=== PATIENT | male | born 1970 | race Caucasian/White ===

== ENCOUNTER 2021-08-28 15:13 | Inpatient (IN) ==
--- NOTE | 2021-08-28 15:48 | XRay Report ---
KUB HISTORY: Follow-up right ureteral stone. right kidney stone COMPARISON: Abdomen and pelvis CT 08/23/2021. FINDINGS: The bowel gas pattern is unremarkable. There are no dilated loops of small bowel to suggest an obstruction. No change in the 4 mm distal right ureteral stone. Additional calcifications within the right deep pelvis are consistent with phleboliths. The renal shadows are mostly obscured by over lying bowel gas. No definite renal calculi identified. Moderate to large amount well-formed stool wit hin the proximal colon. No pneumoperitoneum or pneumatosis. IMPRESSION: No change in position of the 4 mm distal right ureteral stone. ACT 112: Negative or not required by law. Electronically signed by: Keanu Willis M.D. 08/28/2021 3:47 PM
[2021-08-28] MEDS ORDERED: SODIUM CHLORIDE 0.9% 500 ML IV STA (17:24)
[2021-08-28] MEDS ORDERED: KETOROLAC TROMETHAMINE 15 MG/ML VIAL IV STA (17:24)
[2021-08-28 17:37] LABS: Hemoglobin 14.7 g/dL (14.0-18.0); Mean Corpuscular Hemoglobin 31.3 pg (25-34); Mean Corpuscular Hgb Conc 34.2 g/dL (32-36); Mean Corpuscular Volume 91.7 fL (80-100); Mean Platelet Volume 8.8 fL (7.4-10.4); Platelet Count 302 K/uL (130-400); RDW Coefficient of Variation 11.5 % (11.5-14.5); RDW Standard Deviation 38.7 fL (36.4-46.3); Red Blood Count 4.69 M/uL (4.7-6.1)
[2021-08-28 17:57] LABS: BUN Creatinine Ratio 9.5 (10-20); Calcium 8.9 mg/dl (8.5-10.1); Creatinine Clr Calc Pharmacy 42.2 ml/min; Est GFR (African American) 32.7 ml/min; Est GFR (Non-African American) 28.3 ml/min; Potassium 3.5 mmol/L (3.5-5.1)
[2021-08-28 18:18] LABS: Appearance Urine Turbid (Clear); Bacteria Urine Automated Negative (Negative); Bilirubin Urine Negative (Negative); Blood Urine Negative (Negative); Cast Urine Automated 0 /lpf (0-5); Color Urine Yellow; Epithelial Cell Urine Auto 0-5 /lpf (0-5); Glucose Urine UA Negative (Negative); Ketones Urine Negative (Negative); Leukocyte Esterase Urine Negative (Negative); Nitrite Urine Negative (Negative); Protein Urine Negative (Negative); RBC Urine Automated 0-4 /hpf (0-4); Specific Gravity Urine 1.015 (1.000-1.030); Urobilinogen Urine Negative (Negative); WBC Urine Automated 0 /hpf (0-5); pH Urine 8.5 (4.5-7.5)
[2021-08-28] MEDS ORDERED: HYDROmorphone INJ 1 MG/ML SYRINGE IV STA (18:30)
[2021-08-28] MEDS ORDERED: SODIUM CHLORIDE 0.9% 500 ML IV ONE (18:34)
[2021-08-28] MEDS ORDERED: hydrALAZINE HCL 20 MG/ML VIAL IV STA (18:37)
--- NOTE | 2021-08-28 18:50 | Emergency Department Note ---
History of Present Illness General Chief complaint: Kidney Stone Stated complaint: LOW BACK PAIN History of Present Illness Maximum Pain Intensity: 6 This patient is a 51-year-old male the presents the emergency department via private vehicle for evaluation of right lower back pain as sharp, stabbing in nature and occasionally radiates to the right groin. The patient was seen in the emergency department 5 days ago and diagnosed with a right-sided 5 mm kidney stone. He was sent home on pain medication. The pain had initially gotten somewhat better. Today, it became severe. He has been taking the pain meds prescribed in the emergency department with minimal relief. He denies any fever, dysuria or hematuria. No nausea or vomiting reported. The pain is worse with movement. Home Medications Medication Instructions Recorded Confirmed Type amlodipine 10 mg tablet 10 mg PO QAM 08/23/21 08/28/21 History aspirin 81 mg tablet,delayed 81 mg PO QAM 08/23/21 08/28/21 History release carvedilol 6.25 mg tablet 6.25 mg PO BID 08/23/21 08/28/21 History fluticasone propionate 50 1 spray INTRANASAL HS 08/23/21 08/28/21 History mcg/actuation nasal spray,suspension hydrochlorothiazide 25 mg tablet 25 mg PO HS 08/23/21 08/28/21 History lisinopril 40 mg tablet 40 mg PO QAM 08/23/21 08/28/21 History ondansetron 4 mg disintegrating 4 mg PO Q6H PRN #20 tab 08/23/21 08/28/21 Rx tablet oxycodone 5 mg tablet 5 - 10 mg PO Q6H PRN #15 tab 08/23/21 08/28/21 Rx oxymetazoline 0.05 % nasal spray 2 spray INTRANASAL Q12H PRN 08/23/21 08/28/21 History (Afrin (oxymetazoline)) rosuvastatin 10 mg tablet 10 mg PO HS 08/23/21 08/28/21 History terazosin 5 mg capsule 5 mg PO HS 08/23/21 08/28/21 History Allergies Allergy/AdvReac Type Severity Reaction Status Date / Time doxycycline Allergy Intermediate Rash Unverified 08/28/21 18:41 erythromycin base AdvReac Intermediate Joints Unverified 08/28/21 18:41 [From Staticin] stiff and sore ethyl alcohol [From Staticin] AdvReac Intermediate Joints Unverified 08/28/21 18:41 stiff and sore Past Med/Surg History Medical History High cholesterol Hypertension Obstructive sleep apnea on CPAP Surgical History H/O colonoscopy H/O knee surgery S/P tonsillectomy and adenoidectomy S/P TURP Social History Smoking Status: Former smoker Feels Safe at Home: Yes Review of Systems A total of 10 systems reviewed and were otherwise negative Physical Exam Vital Signs Vital Signs - 24 hr 08/28/21 15:15 08/28/21 19:27 Temperature 36.9 C Temperature Source Temporal Artery Scan Pulse Rate 73 Pulse Rate [Finger] 72 Respiratory Rate 18 18 Respiratory Effort / Characteristics Non-Labored Spontaneous Non-Labored Spontaneous Respiratory Depth Normal Normal Respiratory Pattern Regular Blood Pressure 185/112 H Blood Pressure [Right Arm] 169/101 H Blood Pressure Mean 136 Blood Pressure Mean [Right Arm] 123 Blood Pressure Position Sitting Pulse Oximetry 96 97 Oxygen Delivery Method Room Air Room Air Sepsis Recent Fever Within 48 Hours No Sepsis New/Unexplained Change in Mental Status No Sepsis Action Taken by Nursing No Action Required See below Constitutional WD/WN, vitals as above Hypertensive Eyes EOM intact bilaterally ENMT external ear and nose normal, oropharynx normal Oral mucosa slightly dry. Neck trachea midline Respiratory normal respiratory effort, lungs clear to auscultation Cardiovascular RRR, no murmur, no edema Gastrointestinal (Abdomen) Right-sided CVA tenderness noted. No tenderness throughout the rest of the abdomen. Abdomen is soft. Bowel sounds present in all 4 quadrants. Musculoskeletal no cyanosis or clubbing, extremities motor strength 5/5 Skin no rashes, warm and dry Neurologic Alert and oriented x3. No focal motor deficits. Psychiatric Acting appropriately Course Course Critical pathways were initiated Patient was seen and examined Vital signs including blood pressure were reviewed medications list was verified with patient Labs were obtained, and a saline lock was established The patient was ordered Dilaudid for pain in addition to the Toradol he has already received. He was hydrated with a total of 1 L of normal saline. The case was discussed with my supervising physician who is in agreement with my plan. Upon reevaluation, the patient's pain was improved. His blood pressure was also slightly improved. The case was discussed with the hospitalist in addition to urology. They agreed to evaluate the patient for likely inpatient management. He remained stable in the emergency department. Consultations Consultation #1: [facility] hospitalist Consultation #3: Urology-Dr. Benavides Administered Medications Discontinued Medications Hydralazine HCl (Hydralazine Hcl 20 Mg/Ml Vial) 10 mg IV NOW STA Stop: 08/28/21 18:38 Last Admin: 08/28/21 19:24 Dose: 10 mg Documented by: [id number] Hydromorphone HCl (Hydromorphone Inj 1 Mg/Ml Syringe) 1 mg IV NOW STA Stop: 08/28/21 18:31 Last Admin: 08/28/21 19:20 Dose: 1 mg Documented by: [id number] Sodium Chloride (Nss) 500 mls @ 999 mls/hr IV .Q31M STA Stop: 08/28/21 17:54 Last Infusion: 08/28/21 19:27 Dose: 0 mls/hr Documented by: [id number] Admin: 08/28/21 17:31 Dose: 999 mls/hr Documented by: [id number] Sodium Chloride (Nss) 500 mls @ 999 mls/hr IV .Q31M ONE Stop: 08/28/21 19:04 Last Admin: 08/28/21 19:20 Dose: 999 mls/hr Documented by: [id number] Ketorolac Tromethamine (Ketorolac Tromethamine 15 Mg/Ml Vial) 15 mg IV ONE STA Stop: 08/28/21 17:25 Last Admin: 08/28/21 17:31 Dose: 15 mg Documented by: [id number] Medical Decision Making Laboratory Data Result diagrams: 08/28/21 17:20 08/28/21 17:20 Lab Results 08/28/21 08/28/21 08/28/21 Range/Units 17:20 17:20 17:20 WBC 10.80 (4.8-10.8) K/uL RBC 4.69 L (4.7-6.1) M/uL Hgb 14.7 (14.0-18.0) g/dL Hct 43.0 (42-52) % MCV 91.7 (80-100) fL MCH 31.3 (25-34) pg MCHC 34.2 (32-36) g/dL RDW Std Deviation 38.7 (36.4-46.3) fL RDW Coeff of Arturo 11.5 (11.5-14.5) % Plt Count 302 (130-400) K/uL MPV 8.8 (7.4-10.4) fL Sodium 140 (136-145) mmol/L Potassium 3.5 (3.5-5.1) mmol/L Chloride 105 (98-107) mmol/L Carbon Dioxide 28 (21-32) mmol/L Anion Gap 8.0 (3-11) BUN 24 H (7-18) mg/dl Creatinine 2.50 H (0.6-1.4) mg/dl Est Cr Clr Drug Dosing 42.2 ml/min Est GFR ( Amer) 32.7 ml/min Est GFR (Non-Af Amer) 28.3 ml/min BUN/Creatinine Ratio 9.5 L (10-20) Glucose 98 (70-99) mg/dl Calcium 8.9 (8.5-10.1) mg/dl Urine Color Yellow Urine Appearance Turbid A (Clear) Urine pH 8.5 H (4.5-7.5) Ur Specific [place] 1.015 (1.000-1.030) Urine Protein Negative (Negative) Urine Glucose (UA) Negative (Negative) Urine Ketones Negative (Negative) Urine Blood Negative (Negative) Urine Nitrite Negative (Negative) Urine Bilirubin Negative (Negative) Urine Urobilinogen Negative (Negative) Ur Leukocyte Esterase Negative (Negative) Urine WBC (Auto) 0 (0-5) /hpf Urine RBC (Auto) 0-4 (0-4) /hpf U Hyaline Cast (Auto) 0 (0-5) /lpf U Epithel Cells (Auto) 0-5 (0-5) /lpf Urine Bacteria (Auto) Negative (Negative) SARS-CoV-2, RNA, NAAT (NEGATIVE) 08/28/21 Range/Units 19:30 WBC (4.8-10.8) K/uL RBC (4.7-6.1) M/uL Hgb (14.0-18.0) g/dL Hct (42-52) % MCV (80-100) fL MCH (25-34) pg MCHC (32-36) g/dL RDW Std Deviation (36.4-46.3) fL RDW Coeff of Arturo (11.5-14.5) % Plt Count (130-400) K/uL MPV (7.4-10.4) fL Sodium (136-145) mmol/L Potassium (3.5-5.1) mmol/L Chloride (98-107) mmol/L Carbon Dioxide (21-32) mmol/L Anion Gap (3-11) BUN (7-18) mg/dl Creatinine (0.6-1.4) mg/dl Est Cr Clr Drug Dosing ml/min Est GFR ( Amer) ml/min Est GFR (Non-Af Amer) ml/min BUN/Creatinine Ratio (10-20) Glucose (70-99) mg/dl Calcium (8.5-10.1) mg/dl Urine Color Urine Appearance (Clear) Urine pH (4.5-7.5) Ur Specific [place] (1.000-1.030) Urine Protein (Negative) Urine Glucose (UA) (Negative) Urine Ketones (Negative) Urine Blood (Negative) Urine Nitrite (Negative) Urine Bilirubin (Negative) Urine Urobilinogen (Negative) Ur Leukocyte Esterase (Negative) Urine WBC (Auto) (0-5) /hpf Urine RBC (Auto) (0-4) /hpf U Hyaline Cast (Auto) (0-5) /lpf U Epithel Cells (Auto) (0-5) /lpf Urine Bacteria (Auto) (Negative) SARS-CoV-2, RNA, NAAT NEGATIVE (NEGATIVE) Imaging Data Radiologist's Impression: KUB X-Ray 08/28/21 15:23 KUB HISTORY: Follow-up right ureteral stone. right kidney stone COMPARISON: Abdomen and pelvis CT 08/23/2021. FINDINGS: The bowel gas pattern is unremarkable. There are no dilated loops of small bowel to suggest an obstruction. No change in the 4 mm distal right ureteral stone. Additional calcifications within the right deep pelvis are consistent with phleboliths. The renal shadows are mostly obscured by overlying bowel gas. No definite renal calculi identified. Moderate to large amount well- formed stool within the proximal colon. No pneumoperitoneum or pneumatosis. IMPRESSION: No change in position of the 4 mm distal right ureteral stone. ACT 112: Negative or not required by law. Electronically signed by: Keanu Willis M.D. 08/28/2021 3:47 PM MDM Narrative Differential diagnosis: Ureteral stone, hydronephrosis, UTI, pyelonephritis, ROCKY, infectious etiology, among others were considered This patient is a 51-year-old male who presents emergency department with complaints of right flank pain. The patient has already been diagnosed with a ureteral stone and sent home with pain medications, which are not helping. On exam, he was significantly hypertensive. He had CVA tenderness. He appeared slightly dehydrated. CAT scan 5 days ago shows a 5 mm ureteral stone with hydronephrosis. Today, his labs reveal a significant increase in his creatinine. There is no leukocytosis. His urinalysis appears clean. Unfortunately, on the KUB, it does not look like the stone has moved much since his CT 5 days ago. Due to this, ROCKY, and uncontrolled pain, it was felt warranted to consult the hospitalist and urology for likely inpatient management. The patient was in agreement. Impression & Plan Calculus of distal right ureter, ROCKY (acute kidney injury) Discharge Plan Visit Data Chief Complaint: Kidney Stone Stated Complaint: LOW BACK PAIN ED Provider: Tyree Frances ED Midlevel Provider: Carin Abreu Discharge Problem: Calculus of distal right ureter, ROCKY (acute kidney injury) Patient Disposition: Admitted As Inpatient Forms Stand Alone Forms: [facility] Prescriptions Prescriptions: No Action ondansetron 4 mg tablet,disintegrating 4 mg PO Q6H PRN (Reason: nausea and vomiting) Qty: 20 RF: 0 oxycodone 5 mg tablet 5 - 10 mg PO Q6H PRN (Reason: pain) Qty: 15 RF: 0 terazosin 5 mg capsule 5 mg PO HS RF: 0 carvedilol 6.25 mg tablet 6.25 mg PO BID RF: 0 aspirin [Aspir-81] 81 mg Tablet,Delayed Release (Dr/Ec) 81 mg PO QAM RF: 0 amlodipine 10 mg tablet 10 mg PO QAM RF: 0 hydrochlorothiazide 25 mg tablet 25 mg PO HS RF: 0 lisinopril 40 mg tablet 40 mg PO QAM RF: 0 fluticasone propionate 50 mcg/actuation spray,suspension 1 spray INTRANASAL HS RF: 0 oxymetazoline [Afrin (oxymetazoline)] 0.05 % [place],Non-Aerosol 2 spray INTRANASAL Q12H PRN (Reason: Congestion) RF: 0 rosuvastatin 10 mg tablet 10 mg PO HS RF: 0 Referrals Referrals: Yulissa Penny PA-C [Primary Care Provider] -
--- NOTE | 2021-08-28 20:23 | History & Physical Report ---
Date of Service August 28, 2021 Assessment & Plan (1) Calculus of distal right ureter: (2) ROCKY (acute kidney injury): Plan: ROCKY secondary to obstructing ureteral calculus Patient is 51-year-old male with PMH HTN, HLD, sleep apnea presented to ER with complaint of right flank pain. Patient reports onset right flank pain 08/22/2021. He was seen in ER 08/23/[address] abdomen pelvis showing moderate right-sided hydronephrosis, obstructing 5 mm calculus distal right ureter just proximal to UVJ. At that time his creatinine was 1.8. His pain was controlled in ER and was discharged home with pain medicine. Today recurrence of pain. Denies hematuria, fever, chills, further vomiting. In ER patient afebrile, BP 185/112, other vitals stable. No leukocytosis. BUN: 24, Cr: 2.5 (baseline~1.5), UA unremarkable. KUB: 4 mm distal right ureter stone appears to be in similar location In ER received 1 L NSS, Toradol 15 mg IV, Dilaudid 1 mg IV, hydralazine 10 mg IV Patient reports moderate pain control currently N.p.o. midnight No further NSAIDs Strain urine Continue Terazosin Pain control IVF Monitor renal functions, avoid nephrotoxic agents when possible Urology consult, on-call notified by ER and recommends n.p.o. midnight CBC, BMP in a.m. (3) Hypertension: Plan: BP 185/112 in ER Patient given hydralazine 10 mg IV Suspect BP elevated secondary to pain Pain control Continue amlodipine, carvedilol Hold lisinopril, HCTZ secondary to ROCKY (4) High cholesterol: Plan: Continue rosuvastatin (5) Obstructive sleep apnea on CPAP: Plan: CPAP at bedtime DVT Prophylaxis SCDs Full Code as per discussion with pt Follows with Yulissa Penny PA-C for routine care Pt was seen and care coordinated with Dr Zambrano. See addendum History of Present Illness Chief Complaint: Kidney stone Primary Care Provider: Yulissa Penny PA-C Patient is 51-year-old male with PMH HTN, HLD, sleep apnea presented to ER with complaint of right flank pain. Patient reports onset right flank pain 08/22/2021. He was seen in ER 08/23/[address] abdomen pelvis showing moderate right-sided hydronephrosis, obstructing 5 mm calculus distal right ureter just proximal to UVJ. At that time his creatinine was 1.8. His pain was controlled in ER and was discharged home with pain medicine. Patient states was doing okay until today had onset of right flank pain not relieved with pain medicine. Reports 5 days ago had vomiting, no further vomiting since. Reports urinating without difficulty and denies dysuria or noted hematuria. Denies fever/chills, diaphoresis, diarrhea, constipation, DOHERTY, dizziness, syncope, vision changes, neck pain, CP, SOB, orthopnea, palpitations, cough, sore throat, choking, otalgia, rhinorrhea, other abdominal pain, paresthesias, weakness, extremity weakness, extremity edema, rashes. In ER patient afebrile, BP 185/112, other vitals stable. No leukocytosis. BUN: 24, Cr: 2.5 (baseline~1.5), UA unremarkable. KUB: 4 mm distal right ureter stone appears to be in similar location In ER received 1 L NSS, Toradol 15 mg IV, Dilaudid 1 mg IV, hydralazine 10 mg IV Allergies Allergy/AdvReac Type Severity Reaction Status Date / Time doxycycline Allergy Intermediate Rash Unverified 08/28/21 18:41 erythromycin base AdvReac Intermediate Joints Unverified 08/28/21 18:41 [From Staticin] stiff and sore ethyl alcohol [From Staticin] AdvReac Intermediate Joints Unverified 08/28/21 18:41 stiff and sore Home Medications Medication Instructions Recorded Confirmed Type amlodipine 10 mg tablet 10 mg PO QAM 08/23/21 08/28/21 History aspirin 81 mg tablet,delayed 81 mg PO QAM 08/23/21 08/28/21 History release carvedilol 6.25 mg tablet 6.25 mg PO BID 08/23/21 08/28/21 History fluticasone propionate 50 1 spray INTRANASAL HS 08/23/21 08/28/21 History mcg/actuation nasal spray,suspension hydrochlorothiazide 25 mg tablet 25 mg PO HS 08/23/21 08/28/21 History lisinopril 40 mg tablet 40 mg PO QAM 08/23/21 08/28/21 History ondansetron 4 mg disintegrating 4 mg PO Q6H PRN #20 tab 11/21/21 11/26/21 Rx tablet oxycodone 5 mg tablet 5 - 10 mg PO Q6H PRN #15 tab 08/23/21 08/28/21 Rx oxymetazoline 0.05 % nasal spray 2 spray INTRANASAL Q12H PRN 08/23/21 08/28/21 History (Afrin (oxymetazoline)) rosuvastatin 10 mg tablet 10 mg PO HS 08/23/21 08/28/21 History terazosin 5 mg capsule 10 mg PO HS 08/23/21 08/28/21 History Past Med/Surg History Medical History High cholesterol Hypertension Obstructive sleep apnea on CPAP Surgical History H/O colonoscopy H/O knee surgery S/P tonsillectomy and adenoidectomy S/P TURP Family History Other Cancer Heart disease Hypertension Social History Smoking Status: Never smoker Hx Alcohol Use: Yes Hx Substance Use: No Preferred Language: Macedonian Communication Ability: Effective Network Coordinator Required: No Beliefs That Will Affect Care: None Current Living Situation: Spouse Other Information That Helps Us Care for You: No Feels Safe at Home: Yes Safety Concerns: Feels Safe At This Time Assistive Devices: None Review of Systems Review of Systems: All systems reviewed & are unremarkable except as noted in HPI & below Physical Exam Physical Exam: General: no distress, obese Head: normocephalic, atraumatic Eyes: PERRL, EOM's intact, conjunctiva non-injected, anicteric ENT: normal inspection external ears, nose, mucous membranes moist Neck: supple, trachea midline Lungs: clear, no respiratory distress, no wheezing/rhonchi/rales CV: RRR, no murmur, no JVD, no pretibial edema Abd: normal BS, soft, mild right flank tenderness, otherwise no tenderness to palpation Ext: no cyanosis, no calf tenderness Neuro: A&O x 3, no focal deficits noted, normal affect Skin: warm, dry Results & Data Results & Data ([facility]) Vital Signs (Past 12 Hours) Vital Signs Temp Pulse Pulse Resp BP BP Pulse Ox 08/28/21 20:14 67 18 167/101 H 98 08/28/21 19:27 72 18 169/101 H 97 08/28/21 15:15 36.9 C 73 18 185/112 H 96 Laboratory Results Short CBC 08/28/21 08/28/21 Range/Units 17:20 17:20 WBC 10.80 (4.8-10.8) K/uL Hgb 14.7 (14.0-18.0) g/dL Hct 43.0 (42-52) % Plt Count 302 (130-400) K/uL Creatinine 2.50 H (0.6-1.4) mg/dl BMP 08/28/21 17:20 Sodium 140 Potassium 3.5 Chloride 105 Carbon Dioxide 28 BUN 24 H Creatinine 2.50 H Glucose 98 Calcium 8.9 Urine 08/28/21 Range/Units 17:20 Urine Color Yellow Urine Appearance Turbid A (Clear) Urine pH 8.5 H (4.5-7.5) Ur Specific [place] 1.015 (1.000-1.030) Urine Protein Negative (Negative) Urine Glucose (UA) Negative (Negative) Diagnostic Findings KUB X-Ray 08/28/21 15:23 KUB HISTORY: Follow-up right ureteral stone. right kidney stone COMPARISON: Abdomen and pelvis CT 08/23/2021. FINDINGS: The bowel gas pattern is unremarkable. There are no dilated loops of small bowel to suggest an obstruction. No change in the 4 mm distal right ureteral stone. Additional calcifications within the right deep pelvis are consistent with phleboliths. The renal shadows are mostly obscured by overlying bowel gas. No definite renal calculi identified. Moderate to large amount well- formed stool within the proximal colon. No pneumoperitoneum or pneumatosis. IMPRESSION: No change in position of the 4 mm distal right ureteral stone. ACT 112: Negative or not required by law. Electronically signed by: Keanu Willis M.D. 08/28/2021 3:47 PM Code Status & VTE Plan VTE Prophylaxis Plan VTE Prophylaxis will be ordered: Yes Supervising Physician Co-Signing Physician Notes Care coordinated with Kathy Hoffman PA-C. Agree with above note. Patient seen and examined. Please refer to her notes for full details. Vital signs reviewed. Physical exam: General exam: Alert and oriented. Not in acute distress. CVS: S1 and S2 heard, regular rate and rhythm, no murmurs. RS: Clear to auscultation, no wheezing or crackles. ABD: Soft, bowel sounds present, nontender, no distention. 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 EXT: No edema, no erythema. Labs: Reviewed. Assessment and plan:51 M recently found to have right distal uretea stone presented with right flank pain. No fever. no hematuria. Hemodynamics stable. Right Kidney stone pain control fluids urology consult. DINORA cpap q hs Other diagnosis and plan of care as per TRAY Maguire MD.
[2021-08-28] MEDS ORDERED: carvediloL 6.25 MG TAB PO ONE (20:30)
[2021-08-28] MEDS ORDERED: ROSUVASTATIN CALCIUM 10 MG TAB PO SCH (21:05)
[2021-08-28] MEDS ORDERED: ACETAMINOPHEN 325 MG TAB PO PRN (21:05)
[2021-08-28] MEDS ORDERED: ONDANSETRON INJ 2 MG/ML 2 ML VIAL IV PRN (21:05)
[2021-08-28] MEDS ORDERED: FLUTICASONE PROPIONATE NA SPR 16 GM BTL NAE SCH (21:05)
[2021-08-28] MEDS ORDERED: TERAZOSIN HCL 5 MG CAP PO SCH (21:05)
[2021-08-28] MEDS ORDERED: SODIUM CHLORIDE 0.9% 1000ML 1,000 ML IV SCH (21:05)
[2021-08-28] MEDS ORDERED: oxyCODONE HCL IR 5 MG TAB (IMMEDIATE RELEASE) PO PRN (21:05)
[2021-08-28] MEDS ORDERED: POLYETHYLENE (MIRALAX) 17 GM PACK PO PRN (21:05)
[2021-08-28] MEDS ORDERED: HYDROmorphone INJ 0.5 MG/0.5 ML SYR IV PRN (21:05)
[2021-08-29 07:22] LABS: Hematocrit (blood only) 38.8 % (42-52); Hemoglobin 13.2 g/dL (14.0-18.0); Mean Corpuscular Hemoglobin 31.2 pg (25-34); Mean Corpuscular Volume 91.7 fL (80-100); Mean Platelet Volume 8.9 fL (7.4-10.4); Platelet Count 295 K/uL (130-400); RDW Coefficient of Variation 11.8 % (11.5-14.5); Red Blood Count 4.23 M/uL (4.7-6.1); White Blood Count 8.24 K/uL (4.8-10.8)
[2021-08-29 07:41] LABS: BUN Creatinine Ratio 11.5 (10-20); Calcium 8.6 mg/dl (8.5-10.1); Creatinine Clr Calc Pharmacy 61.5 ml/min; Est GFR (African American) 49.7 ml/min; Est GFR (Non-African American) 42.9 ml/min; Potassium 3.2 mmol/L (3.5-5.1)
[2021-08-29] MEDS ORDERED: ASPIRIN 81 MG ECTAB PO SCH (09:00)
[2021-08-29] MEDS ORDERED: amLODIPine BESYLATE 5 MG TAB PO SCH (09:00)
[2021-08-29] MEDS ORDERED: carvediloL 6.25 MG TAB PO SCH (09:00)
--- NOTE | 2021-08-29 09:57 | Urology Consultation ---
Date of Consultation August 29, 2021 Assessment & Plan (1) Calculus of distal right ureter: We discussed his ureteral stone. At 4 mm it has approximately 60% chance of passing spontaneously. We discussed medical expulsive therapy, using pain control with Tylenol, ibuprofen, his terazosin, possibly adding Pyridium. We discussed that if he does this, he will still require urology follow-up, and that he should monitor for changes in urination or fevers and chills. We also discussed possible surgical intervention with cystoscopy, ureteroscopy with laser lithotripsy or basket extraction of the stone and ureteral stent placement. We discussed the risks of the surgery including bleeding, infection, injury to nearby structures, need for repeat procedure if the stone can be accessed. He expressed understanding and would prefer to try medical expulsive therapy. (2) ROCKY (acute kidney injury): His ROCKY has improved with hydration. I suspect that the underlying cause was dehydration, as the left kidney was not obstructed at all. I encouraged him to stay hydrated if he goes for medical expulsive therapy. Okay for discharge home Pain control Tylenol, ibuprofen, current alpha-cory, Pyridium Urology will arrange outpatient follow-up to ensure stone passage Strain all urine History of Present Illness Attending Physician: Aj Diana MD History of Present Illness This is a 51-year-old male who presented to the hospital on 08/28/2021 with right-sided flank pain. He had previously been seen earlier in the week and was diagnosed with a 4 mm distal right ureteral stone. The pain had been controlled at that time and he was sent home, but returned and was not controlled with the medications he had at home. He denies any fevers or chills. He denies any nausea or vomiting with this bout of pain, although had some earlier in the week. He has no prior history of kidney stones. He has seen a urologist in the past for urinary urgency, and he had a TURP approximately 2 years ago. Labs in the ED were notable for normal WBC, normal H&H and platelets, normal electrolytes but elevated creatinine (2.5). An x-ray was performed which confirmed that the stone was likely still in place. I independently reviewed his CT scan from 08/23/2021, which shows 2 kidneys, some hydronephrosis and perinephric stranding on the right side. There is a 4 mm obstructing stone at the distal right ureter. His bladder is well decompressed with no evidence of bladder wall thickening. His prostate is mildly enlarged and homogeneous in appearance. This morning he appears comfortable. He denies any significant pain since last night. He notes that he has not had to use a lot of pain medication at home, only taking a couple of oxycodone and some Tylenol. He has not tried ibuprofen. Allergies Allergy/AdvReac Type Severity Reaction Status Date / Time doxycycline Allergy Intermediate Rash Unverified 08/28/21 18:41 erythromycin base AdvReac Intermediate Joints Unverified 08/28/21 18:41 [From Staticin] stiff and sore ethyl alcohol [From Staticin] AdvReac Intermediate Joints Unverified 08/28/21 18:41 stiff and sore Home Medications Medication Instructions Recorded Confirmed Type amlodipine 10 mg tablet 10 mg PO QAM 08/23/21 08/28/21 History aspirin 81 mg tablet,delayed 81 mg PO QAM 08/23/21 08/28/21 History release carvedilol 6.25 mg tablet 6.25 mg PO BID 08/23/21 08/28/21 History fluticasone propionate 50 1 spray INTRANASAL HS 08/23/21 08/28/21 History mcg/actuation nasal spray,suspension hydrochlorothiazide 25 mg tablet 25 mg PO HS 08/23/21 08/28/21 History lisinopril 40 mg tablet 40 mg PO QAM 08/23/21 08/28/21 History ondansetron 4 mg disintegrating 4 mg PO Q6H PRN #20 tab 08/23/21 08/28/21 Rx tablet oxycodone 5 mg tablet 5 - 10 mg PO Q6H PRN #15 tab 08/23/21 08/28/21 Rx oxymetazoline 0.05 % nasal spray 2 spray INTRANASAL Q12H PRN 08/23/21 08/28/21 History (Afrin (oxymetazoline)) rosuvastatin 10 mg tablet 10 mg PO HS 08/23/21 08/28/21 History terazosin 5 mg capsule 10 mg PO HS 08/23/21 08/28/21 History Patient History Medical History High cholesterol Hypertension Obstructive sleep apnea on CPAP Surgical History H/O colonoscopy H/O knee surgery S/P tonsillectomy and adenoidectomy S/P TURP Family History Other Cancer Heart disease Hypertension Social History Smoking Status: Never smoker Hx Alcohol Use: Yes Hx Substance Use: No Preferred Language: Armenian Communication Ability: Effective Skiagrapher Required: No Beliefs That Will Affect Care: None Current Living Situation: Spouse Other Information That Helps Us Care for You: No Feels Safe at Home: Yes Safety Concerns: Feels Safe At This Time Assistive Devices: None Review of Systems Constitutional: no fever and no chills Eyes: no worsening vision Ear, Nose, Mouth, Throat: no tinnitus Respiratory: no cough and no dyspnea Cardiovascular: no chest pain and no palpitations Gastrointestinal: no abdominal pain, no nausea, no vomiting, no constipation and no diarrhea/loose stools Genitourinary: + as per Subjective / HPI (Flank pain) Musculoskeletal: no joint pain and no myalgia Integumentary: no rash and no lesions Neurologic: no localized weakness, no numbness and no paresthesia Endocrine: no fatigue Hematologic / Lymphatic: no easy bleeding and no easy bruising Physical Exam Constitutional: well developed and well nourished; no acute distress Eyes: + anicteric sclerae; pupils not irregular Respiratory: normal respiratory effort; no respiratory distress, does not use accessory muscles and no cough Cardiovascular: well perfused Gastrointestinal (Abdomen): Inspection/Auscultation: abdomen normal to inspection; abdomen not distended Musculoskeletal: Extremities: extremities normal to inspection Skin: normal turgor; no rashes and no lesions Neurologic: moves all extremities and awake Psychiatric: Orientation: alert and oriented x 3 Results & Data ([facility]) Vital Signs (Past 12 Hours) Vital Signs Temp Pulse Pulse Resp BP BP Pulse Ox 08/29/21 07:27 36.9 C 73 16 165/89 H 96 08/29/21 01:49 59 L 149/77 H PG Care Time/CCT Total # of Minutes Spent Total Time Spent with Patient: Total time spent is greater than 50% in coordination of care (as documented) at patient's floor/unit and/or counseling patient: Coding Level of Care Code 72956 Inpt Consult Level 4 Diagnoses Calculus of distal right ureter N20.1 ROCKY (acute kidney injury) N17.9
[2021-08-29] MEDS ORDERED: POTASSIUM CHLORIDE CRTAB 20 MEQ TABCR PO STA (11:38)
--- NOTE | 2021-08-29 11:38 | Hospitalist Progress Note ---
Date of Service August 29, 2021 Assessment & Plan (1) Calculus of distal right ureter: (2) ROCKY (acute kidney injury): Plan: Flank pain ROCKY secondary to obstructing ureteral calculus Patient is 51 yo male with PMH HTN, HLD, sleep apnea presented to ER with complaint of right flank pain. Patient reports onset right flank pain 08/22/2021. He was seen in ER 08/23/[address] abdomen pelvis showing moderate right-sided hydronephrosis, obstructing 5 mm calculus distal right ureter just proximal to UVJ. At that time his creatinine was 1.8. His pain was controlled in ER and was discharged home with pain medicine. Now recurrence of pain. Denies hematuria, fever, chills, further vomiting. In ER patient afebrile, BP 185/112, other vitals stable. No leukocytosis. BUN: 24, Cr: 2.5 (baseline~1.5) UA unremarkable KUB: 4 mm distal right ureter stone appears to be in similar location In ER received 1 L NSS, Toradol 15 mg IV, Dilaudid 1 mg IV, hydralazine 10 mg IV Patient reports moderate pain control in ED after pain meds No further NSAIDs Strain urine Continue Terazosin Pain control IVF Monitor renal functions, avoid nephrotoxic agents when possible Currently patient is feeling much better, pain is much better controlled. Creatinine improved to 1.8 this morning Urology consulted - okay for discharge home, with close follow-up with outpatient urology (3) Hypertension: Plan: BP 185/112 in ER on admission Patient given hydralazine 10 mg IV Suspect BP elevated secondary to pain Pain control Continue amlodipine, carvedilol Hold lisinopril, HCTZ secondary to ROCKY We will discharge on amlodipine, carvedilol and we will add hydralazine while patient will be holding lisinopril and HCTZ Patient advised to check blood pressure at home and contact primary care travis seymour's office this week (4) High cholesterol: Plan: Continue rosuvastatin (5) Obstructive sleep apnea on CPAP: Plan: CPAP at bedtime DVT Prophylaxis SCDs Full Code as per discussion with pt Follows with Yulissa Penny PA-C for routine care Admission and Anticipated Discharge Date Admission Date: August 28, 2021 Subjective Patient seen in follow-up of flank pain and ROCKY, secondary to obstructive ureteral stone Creatinine improved today Currently he feels much better, denies any fevers, chills, chest pain, shortness of breath Also denies much of abdominal pain nausea or vomiting Says his pain is much better controlled Patient seen by urology -karen to DC home and follow-up with urology as outpatient Review of Systems Review of Systems: All systems reviewed & are unremarkable except as noted in Subjective Physical Exam Physical Exam: General: no distress, obese M Head: normocephalic, atraumatic Eyes: PERRL, EOM's intact, conjunctiva non-injected, anicteric ENT: normal inspection external ears, nose, mucous membranes moist Neck: supple, trachea midline Lungs: clear, no respiratory distress, no wheezing/rhonchi/rales CV: RRR, no murmur, no JVD, no pretibial edema Abd: normal BS, soft, mild right flank tenderness, otherwise no tenderness to palpation Ext: no calf tenderness, moves extremities Neuro: A&O x 3, no focal deficits noted, normal affect Skin: warm, dry Results & Data Results & Data ([facility]) Vital Signs (Past 12 Hours) Vital Signs Temp Pulse Pulse Resp BP BP Pulse Ox 08/29/21 07:27 36.9 C 73 16 165/89 H 96 08/29/21 01:49 59 L 149/77 H Laboratory Results 08/29/21 08/29/21 08/28/21 Range/Units 06:39 06:39 19:30 WBC 8.24 (4.8-10.8) K/uL RBC 4.23 L (4.7-6.1) M/uL Hgb 13.2 L (14.0-18.0) g/dL Hct 38.8 L (42-52) % MCV 91.7 (80-100) fL MCH 31.2 (25-34) pg MCHC 34.0 (32-36) g/dL RDW Std Deviation 40.0 (36.4-46.3) fL RDW Coeff of Arturo 11.8 (11.5-14.5) % Plt Count 295 (130-400) K/uL MPV 8.9 (7.4-10.4) fL Sodium 139 (136-145) mmol/L Potassium 3.2 L (3.5-5.1) mmol/L Chloride 107 (98-107) mmol/L Carbon Dioxide 26 (21-32) mmol/L Anion Gap 6.0 (3-11) BUN 20 H (7-18) mg/dl Creatinine 1.77 H D (0.6-1.4) mg/dl Est Cr Clr Drug Dosing 61.5 ml/min Est GFR ( Amer) 49.7 ml/min Est GFR (Non-Af Amer) 42.9 ml/min BUN/Creatinine Ratio 11.5 (10-20) Glucose 103 H (70-99) mg/dl Calcium 8.6 (8.5-10.1) mg/dl Urine Color Urine Appearance (Clear) Urine pH (4.5-7.5) Ur Specific [place] (1.000-1.030) Urine Protein (Negative) Urine Glucose (UA) (Negative) Urine Ketones (Negative) Urine Blood (Negative) Urine Nitrite (Negative) Urine Bilirubin (Negative) Urine Urobilinogen (Negative) Ur Leukocyte Esterase (Negative) Urine WBC (Auto) (0-5) /hpf Urine RBC (Auto) (0-4) /hpf U Hyaline Cast (Auto) (0-5) /lpf U Epithel Cells (Auto) (0-5) /lpf Urine Bacteria (Auto) (Negative) SARS-CoV-2, RNA, NAAT NEGATIVE (NEGATIVE) 08/28/21 08/28/21 08/28/21 Range/Units 17:20 17:20 17:20 WBC 10.80 (4.8-10.8) K/uL RBC 4.69 L (4.7-6.1) M/uL Hgb 14.7 (14.0-18.0) g/dL Hct 43.0 (42-52) % MCV 91.7 (80-100) fL MCH 31.3 (25-34) pg MCHC 34.2 (32-36) g/dL RDW Std Deviation 38.7 (36.4-46.3) fL RDW Coeff of Arturo 11.5 (11.5-14.5) % Plt Count 302 (130-400) K/uL MPV 8.8 (7.4-10.4) fL Sodium 140 (136-145) mmol/L Potassium 3.5 (3.5-5.1) mmol/L Chloride 105 (98-107) mmol/L Carbon Dioxide 28 (21-32) mmol/L Anion Gap 8.0 (3-11) BUN 24 H (7-18) mg/dl Creatinine 2.50 H (0.6-1.4) mg/dl Est Cr Clr Drug Dosing 42.2 ml/min Est GFR ( Amer) 32.7 ml/min Est GFR (Non-Af Amer) 28.3 ml/min BUN/Creatinine Ratio 9.5 L (10-20) Glucose 98 (70-99) mg/dl Calcium 8.9 (8.5-10.1) mg/dl Urine Color Yellow Urine Appearance Turbid A (Clear) Urine pH 8.5 H (4.5-7.5) Ur Specific [place] 1.015 (1.000-1.030) Urine Protein Negative (Negative) Urine Glucose (UA) Negative (Negative) Urine Ketones Negative (Negative) Urine Blood Negative (Negative) Urine Nitrite Negative (Negative) Urine Bilirubin Negative (Negative) Urine Urobilinogen Negative (Negative) Ur Leukocyte Esterase Negative (Negative) Urine WBC (Auto) 0 (0-5) /hpf Urine RBC (Auto) 0-4 (0-4) /hpf U Hyaline Cast (Auto) 0 (0-5) /lpf U Epithel Cells (Auto) 0-5 (0-5) /lpf Urine Bacteria (Auto) Negative (Negative) SARS-CoV-2, RNA, NAAT (NEGATIVE) Medications Administered Current Inpatient Medications Acetaminophen (Acetaminophen 325 Mg Tab) 650 mg PO Q4H PRN PRN Reason: Pain or Fever Stop: 09/27/21 21:04 Amlodipine Besylate (Amlodipine Besylate 5 Mg Tab) [facility] Stop: 09/28/21 08:59 Last Admin: 08/29/21 08:46 Dose: 10 mg Documented by: Aspirin (Aspirin 81 Mg Ectab) 81 mg PO QAM [facility] Stop: 09/28/21 08:59 Last Admin: 08/29/21 08:46 Dose: 81 mg Documented by: Carvedilol (Carvedilol 6.25 Mg Tab) 6.25 mg PO BID [facility] Stop: 09/28/21 08:59 Last Admin: 08/29/21 08:47 Dose: 6.25 mg Documented by: Fluticasone Propionate (Fluticasone Propionate Na Spr 16 Gm Btl) 1 sprays [facility] Stop: 09/27/21 21:04 Last Admin: 08/28/21 22:16 Dose: 1 sprays Documented by: Hydromorphone HCl (Hydromorphone Inj 0.5 Mg/0.5 Ml Syr) 0.5 mg IV Q6H PRN PRN Reason: Severe Pain Stop: 09/11/21 21:04 Ondansetron HCl (Ondansetron Inj 2 Mg/Ml 2 Ml Vial) 4 mg IV Q6H PRN PRN Reason: Nausea Stop: 09/27/21 21:04 Oxycodone HCl (Oxycodone Hcl Ir 5 Mg Tab (Immediate Release)) 5 mg PO Q6H PRN PRN Reason: Moderate Pain Stop: 09/11/21 21:04 Polyethylene Glycol (Polyethylene (Miralax) 17 Gm Pack) 17 gm PO DAILY PRN PRN Reason: Constipation Stop: 09/27/21 21:04 Rosuvastatin Calcium (Rosuvastatin Calcium 10 Mg Tab) 10 mg PO [facility] Stop: 09/27/21 21:04 Last Admin: 08/28/21 22:16 Dose: 10 mg Documented by: Terazosin HCl (Terazosin Hcl 5 Mg Cap) 10 mg PO [facility] Stop: 09/27/21 21:04 Last Admin: 08/28/21 22:16 Dose: 10 mg Documented by:
--- NOTE | 2021-08-29 12:41 | Discharge Summary ---
Date of Service August 29, 2021 Admission HPI Per Admitting Provider Patient is 51-year-old male with PMH HTN, HLD, sleep apnea presented to ER with complaint of right flank pain. Patient reports onset right flank pain 08/22/2021. He was seen in ER 08/23/[address] abdomen pelvis showing moderate right-sided hydronephrosis, obstructing 5 mm calculus distal right ureter just proximal to UVJ. At that time his creatinine was 1.8. His pain was controlled in ER and was discharged home with pain medicine. Patient states was doing okay until today had onset of right flank pain not relieved with pain medicine. Reports 5 days ago had vomiting, no further vomiting since. Reports urinating without difficulty and denies dysuria or noted hematuria. Denies fever/chills, diaphoresis, diarrhea, constipation, DOHERTY, dizziness, syncope, vision changes, neck pain, CP, SOB, orthopnea, palpitations, cough, sore throat, choking, otalgia, rhinorrhea, other abdominal pain, paresthesias, weakness, extremity weakness, extremity edema, rashes. In ER patient afebrile, BP 185/112, other vitals stable. No leukocytosis. BUN: 24, Cr: 2.5 (baseline~1.5), UA unremarkable. KUB: 4 mm distal right ureter stone appears to be in similar location In ER received 1 L NSS, Toradol 15 mg IV, Dilaudid 1 mg IV, hydralazine 10 mg IV Admission Exam Per Admitting Provider Patient is 51-year-old male with PMH HTN, HLD, sleep apnea presented to ER with complaint of right flank pain. Patient reports onset right flank pain 08/22/2021. He was seen in ER 08/23/[address] abdomen pelvis showing moderate right-sided hydronephrosis, obstructing 5 mm calculus distal right ureter just proximal to UVJ. At that time his creatinine was 1.8. His pain was controlled in ER and was discharged home with pain medicine. Patient states was doing okay until today had onset of right flank pain not relieved with pain medicine. Reports 5 days ago had vomiting, no further vomiting since. Reports urinating without difficulty and denies dysuria or noted hematuria. Denies fever/chills, diaphoresis, diarrhea, constipation, DOHERTY, dizziness, syncope, vision changes, neck pain, CP, SOB, orthopnea, palpitations, cough, sore throat, choking, otalgia, rhinorrhea, other abdominal pain, paresthesias, weakness, extremity weakness, extremity edema, rashes. In ER patient afebrile, BP 185/112, other vitals stable. No leukocytosis. BUN: 24, Cr: 2.5 (baseline~1.5), UA unremarkable. KUB: 4 mm distal right ureter stone appears to be in similar location In ER received 1 L NSS, Toradol 15 mg IV, Dilaudid 1 mg IV, hydralazine 10 mg IV Principal Diagnosis ROCKY secondary to obstructing ureteral calculus Discharge Exam General: no distress, obese M Head: normocephalic, atraumatic Eyes: PERRL, EOM's intact, conjunctiva non-injected, anicteric ENT: normal inspection external ears, nose, mucous membranes moist Neck: supple, trachea midline Lungs: clear, no respiratory distress, no wheezing/rhonchi/rales CV: RRR, no murmur, no JVD, no pretibial edema Abd: normal BS, soft, mild right flank tenderness, otherwise no tenderness to palpation Ext: no calf tenderness, moves extremities Neuro: A&O x 3, no focal deficits noted, normal affect Skin: warm, dry Discharge Data Allergies Allergy/AdvReac Type Severity Reaction Status Date / Time doxycycline Allergy Intermediate Rash Unverified 08/28/21 18:41 erythromycin base AdvReac Intermediate Joints Unverified 08/28/21 18:41 [From Staticin] stiff and sore ethyl alcohol [From Staticin] AdvReac Intermediate Joints Unverified 08/28/21 18:41 stiff and sore Consultations 08/28/21 19:09 ED Decision to Admit Stat 08/28/21 21:05 Consult Urology Routine Hospital Course (1) Calculus of distal right ureter: (2) ROCKY (acute kidney injury): Flank pain ROCKY secondary to obstructing ureteral calculus Patient is 51 yo male with PMH HTN, HLD, sleep apnea presented to ER with complaint of right flank pain. Patient reports onset right flank pain 08/22/2021. He was seen in ER 08/23/[address] abdomen pelvis showing moderate right-sided hydronephrosis, obstructing 5 mm calculus distal right ureter just proximal to UVJ. At that time his creatinine was 1.8. His pain was controlled in ER and was discharged home with pain medicine. Now recurrence of pain. Denies hematuria, fever, chills, further vomiting. In ER patient afebrile, BP 185/112, other vitals stable. No leukocytosis. BUN: 24, Cr: 2.5 (baseline~1.5) UA unremarkable KUB: 4 mm distal right ureter stone appears to be in similar location In ER received 1 L NSS, Toradol 15 mg IV, Dilaudid 1 mg IV, hydralazine 10 mg IV Patient reports moderate pain control in ED after pain meds No further NSAIDs Strain urine Continue Terazosin Pain control IVF Monitor renal functions, avoid nephrotoxic agents when possible Currently patient is feeling much better, pain is much better controlled. Creatinine improved to 1.8 this morning Urology consulted - okay for discharge home, with close follow-up with outpatient urology (3) Hypertension: BP 185/112 in ER on admission Patient given hydralazine 10 mg IV Suspect BP elevated secondary to pain Pain control Continue amlodipine, carvedilol Hold lisinopril, HCTZ secondary to ROCKY We will discharge on amlodipine, carvedilol and we will add hydralazine while patient will be holding lisinopril and HCTZ Patient advised to check blood pressure at home and contact primary care doctor's office this week (4) High cholesterol: Continue rosuvastatin (5) Obstructive sleep apnea on CPAP: CPAP at bedtime Follows with Yulissa Penny PA-C for routine care Total Time Total Time Spent Total Time Spent (In Minutes): 35 Discharge Plan Discharge Items Patient Disposition: Home - Self-Care Reason For Visit: kidney stone Discharge Diagnosis: ROCKY secondary to obstructing ureteral calculus Activity: Per Instructions section Non-emergency contact: Primary Care Provider and Urologist Call non-emergency contact if: you have any medication questions and your symptoms worsen Follow-up/Referrals: Yulissa Penny PA-C [Primary Care Provider] - Diet: Regular Addtl Attending Provider Instructions: Please review urology instructions below in detail. For pain, take Tylenol up to 3000 mg a day. Pyridium was also sent to your pharmacy. For more severe pain, you can take oxycodone as prescribed. Do not take lisinopril or hydrochlorothiazide until you see urologist or primary care doctor. Continue taking amlodipine and carvedilol. Also take Terazosin. To control blood pressure, take hydralazine, for next few days. Prescription was sent to your pharmacy. Monitor your blood pressure at home if you can, and discuss your numbers with primary care doctor's office this week. Make sure to stay well-hydrated. Addtl Slipper Maker Provider Instructions: The urology office will reach out to you in 1-2 business days to set up an appointment to check in. Please call the urology office at [phone] with any questions, concerns or need to reschedule appointments for any reason. We are happy to assist you. Medications: please resume your normal medications as previously prescribed. For pain control, you can alternate Tylenol and ibuprofen every 3 hours. Continue your Terazosin. You can also use Azo (Pyridium), which can be purchased at the drugstore. This medication is taken every [address] to call [facility] Urology at [phone]: Fever of 101F or higher Heavy bleeding Pain that is not controlled with medicine Uncontrolled vomiting Problems urinating or inability to urinate Pending Studies at Discharge: No Stand-Alone Forms: [employer], Smoking Cessation Medications and DC Order Prescriptions: New phenazopyridine [Pyridium] 200 mg tablet 200 mg PO Q8H PRN (Reason: pain) Qty: 14 RF: 0 oxycodone 5 mg tablet 5 mg PO Q8H PRN (Reason: pain) Qty: 7 RF: 0 hydralazine 25 mg tablet 25 mg PO DAILY Qty: 7 RF: 0 Continued ondansetron 4 mg tablet,disintegrating 4 mg PO Q6H PRN (Reason: nausea and vomiting) Qty: 20 RF: 0 oxycodone 5 mg tablet 5 - 10 mg PO Q6H PRN (Reason: pain) Qty: 15 RF: 0 terazosin 5 mg capsule 10 mg PO HS RF: 0 carvedilol 6.25 mg tablet 6.25 mg PO BID RF: 0 aspirin 81 mg Tablet,Delayed Release (Dr/Ec) 81 mg PO QAM RF: 0 amlodipine 10 mg tablet 10 mg PO QAM RF: 0 hydrochlorothiazide 25 mg tablet 25 mg PO HS RF: 0 lisinopril 40 mg tablet 40 mg PO QAM RF: 0 fluticasone propionate 50 mcg/actuation spray,suspension 1 spray INTRANASAL HS RF: 0 oxymetazoline [Afrin (oxymetazoline)] 0.05 % [place],Non-Aerosol 2 spray INTRANASAL Q12H PRN (Reason: Congestion) RF: 0 rosuvastatin 10 mg tablet 10 mg PO HS RF: 0 Discharge Orders: Discharge Order (Routine); Ordered 08/29/21 Ordered By: Aj Lanier/Other Patient Handouts: Identifying Kidney Stones Admission Data Admit Date/Time: 08/28/21 19:47 Attending Provider: Aj Diana Admit Provider: Wisam Zambrano Primary Care Provider: Yulissa Penny Other Providers: Wendy Bustos ; Madhav Benavides
== END 2021-08-29 13:12 | disposition home or self-care (01) | DRG 694 ==
LOC: ED 15:13 → SUATTDRO 19:47 → 3W 19:47